=== PATIENT | female | born 1950 | race Caucasian/White ===

== ENCOUNTER 2019-09-27 20:30 | Emergency (ER) | payer MEDICARE, BC ==
[~2019-09-27] VITALS: Ht 162.6 cm; Wt 78.3 kg
--- NOTE | 2019-09-27 20:50 | NUR ---
assumed care of pt. pt here for swelling to RLEx1 day. pt reports that she is about 10 days out from a vascular procedure of her R leg. reports that she had a long car ride here from [facility] and that she is having swelling of R leg, calf and ankle. + visible swelling. no discoloration. pt denies numbness/tingling. dorsalis pedis and posterior tibial pulses palpable and marked. CMS of R foot intact. pt ambulatory. denies CP or SOB. no resp. distress.
--- NOTE | 2019-09-27 21:05 | NUR ---
US at bedside
[2019-09-27 22:28] VITALS: BP 129/81
== END 2019-09-27 22:32 | disposition home or self-care (01) ==
LOC: ED 21:59
DX: R60.0 Localized edema (principal)
CPT/HCPCS: 99284